=== PATIENT | female | born 1980 | race Asian ===

== ENCOUNTER 2017-07-17 03:48 | Emergency (ER) | payer OTHER ==
[~2017-07-17] VITALS: Ht 152.4 cm; Wt 46.6 kg
[2017-07-17] MEDS ORDERED: PROAIR HFA8.5 GM IH (05:25)
[2017-07-17 06:17] VITALS: BP 125/84
== END 2017-07-17 06:20 | disposition home or self-care (01) ==
LOC: EDBD 03:48 → EME 03:48
DX: J45.21 Mild intermittent asthma with (acute) exacerbation (principal); J44.9 Chronic obstructive pulmonary disease, unspecified; Z77.22 Contact with and (suspected) exposure to environmental tobacco smoke (acute) (chronic)
CPT/HCPCS: 93005; 94640; 99281; 99283; J7644

== ENCOUNTER 2017-09-22 22:46 | Emergency (ER) | payer OTHER ==
[~2017-09-22] VITALS: Ht 152.4 cm; Wt 47.0 kg
[~2017-09-22 22:46] MED LIST: PROAIR HFA8.5 GM IH
[2017-09-22 23:59] LABS: HEMATOCRIT 38.8 % (36.0-46.0); HEMOGLOBIN 12.6 G/DL (11.9-15.5); MCH 28.7 PG (29.0-34.0); MCHC 32.5 G/DL (30.0-36.0); MCV 88.4 FL (83-99); PLATELET COUNT 294 K/uL (156-360); RBC DIS.WIDTH-CV 15.4 % (11.8-14.6); RBC DIS.WIDTH-SD 49.9 % (39-53); RED BLOOD COUNT 4.39 M/uL (3.80-5.20); WHITE BLOOD COUNT 8.4 K/uL (4.1-10.2)
[2017-09-23 00:08] LABS: ALBUMIN 4.2 g/dL (3.2-4.8)
[2017-09-23 00:09] LABS: CHLORIDE 104 mEq/L (99-109); POTASSIUM 4.1 mEq/L (3.7-5.4); SODIUM 138 mEq/L (136-147)
[2017-09-23 00:11] LABS: GLUCOSE 92 mg/dL (70-99); TOTAL PROTEIN 7.4 g/dL (6.4-8.3)
[2017-09-23 00:13] LABS: TOTAL BILIRUBIN 0.3 mg/dL (0.0-1.0)
[2017-09-23 00:15] LABS: ALKALINE PHOSPHATASE 62 IU/L (3-129); CREATININE 0.7 mg/dL (0.6-1.3); GFR ESTIMATE (CALCULATED) > 59 mL/min/
[2017-09-23 00:16] LABS: UREA NITROGEN (BUN) 12 mg/dL (9-23)
[2017-09-23 00:17] LABS: AST (GOT) 17 IU/L (2-34)
[2017-09-23 00:18] LABS: ALT (GPT) 8 IU/L (3-49)
[2017-09-23 00:23] LABS: QUANTITATIVE HCG < 4.0 MIU/ML
[2017-09-23 04:17] LABS: LIPASE 37 U/L (1.0-51.0)
[2017-09-23] MEDS ORDERED: ZOFRAN4 MG PO (05:57)
[2017-09-23] MEDS ORDERED: PERCOCET 5/31 TABLET PO (05:57)
[2017-09-23] MEDS ORDERED: MACROBID100 MG PO (06:53)
[2017-09-23 07:31] VITALS: BP 111/79
[2017-09-23 07:38] LABS: APPEARANCE CLEAR ((CLEAR)); BILIRUBIN NEGATIVE; BLOOD NEGATIVE; COLOR STRAW ((YELLOW)); GLUCOSE (STRIP) NEGATIVE; KETONES NEGATIVE; LEUKOCYTES NEGATIVE; NITRITE NEGATIVE; PROTEIN (STRIP) NEGATIVE; SPECIFIC GRAVITY 1.005 (1.000-1.030); UCUL ADDED? NO; UROBILINOGEN 0.2 MG/DL (0.2-1.0)
== END 2017-09-23 07:48 | disposition home or self-care (01) ==
LOC: EME 22:46
DX: N83.202 Unspecified ovarian cyst, left side (principal); N83.201 Unspecified ovarian cyst, right side; R30.0 Dysuria; D25.9 Leiomyoma of uterus, unspecified; J44.9 Chronic obstructive pulmonary disease, unspecified; R73.03 Prediabetes
CPT/HCPCS: 76856; 80053; 81003; 83690; 84702; 85027; 93971; 99281; 99285; J1885; J2270; J2405; J7030

== ENCOUNTER 2017-12-03 13:34 | Emergency (ER) | payer OTHER ==
[~2017-12-03] VITALS: Ht 152.4 cm; Wt 45.0 kg
[~2017-12-03 13:34] MED LIST changes: +MACROBID100 MG PO; +PERCOCET 5/31 TABLET PO; +ZOFRAN4 MG PO
[2017-12-03 14:41] LABS: HEMATOCRIT 41.9 % (36.0-46.0); HEMOGLOBIN 13.5 G/DL (11.9-15.5); MCH 28.8 PG (29.0-34.0); MCHC 32.2 G/DL (30.0-36.0); MCV 89.5 FL (83-99); PLATELET COUNT 329 K/uL (156-360); RBC DIS.WIDTH-CV 14.5 % (11.8-14.6); RED BLOOD COUNT 4.68 M/uL (3.80-5.20); WHITE BLOOD COUNT 4.9 K/uL (4.1-10.2)
[2017-12-03 14:51] LABS: ALBUMIN 4.2 g/dL (3.2-4.8); CHLORIDE 105 mEq/L (99-109); POTASSIUM 4.3 mEq/L (3.7-5.4); SODIUM 140 mEq/L (136-147)
[2017-12-03 14:54] LABS: GLUCOSE 89 mg/dL (70-99); TOTAL PROTEIN 7.6 g/dL (6.4-8.3)
[2017-12-03 14:56] LABS: TOTAL BILIRUBIN 0.5 mg/dL (0.0-1.0)
[2017-12-03 14:57] LABS: ALKALINE PHOSPHATASE 58 IU/L (3-129); CREATININE 0.8 mg/dL (0.6-1.3); GFR ESTIMATE (CALCULATED) > 59 mL/min/
[2017-12-03 14:58] LABS: UREA NITROGEN (BUN) 13 mg/dL (9-23)
[2017-12-03 14:59] LABS: AST (GOT) 17 IU/L (2-34)
[2017-12-03 15:00] LABS: ALT (GPT) 9 IU/L (3-49)
[2017-12-03 15:07] LABS: QUANTITATIVE HCG < 4.0 MIU/ML
[2017-12-03 15:22] VITALS: BP 119/68
[2017-12-03 15:27] LABS: LIPASE 24 U/L (1.0-51.0)
[2017-12-03 17:04] LABS: APPEARANCE CLEAR ((CLEAR)); BILIRUBIN NEGATIVE; BLOOD MODERATE; COLOR YELLOW ((YELLOW)); GLUCOSE (STRIP) NEGATIVE; KETONES 20; LEUKOCYTES TRACE; NITRITE NEGATIVE; PROTEIN (STRIP) NEGATIVE; SPECIFIC GRAVITY 1.019 (1.000-1.030); UROBILINOGEN 0.2 MG/DL (0.2-1.0)
[2017-12-03 17:11] LABS: BACTERIA RARE /HPF; EPITHELIAL CELLS 1+ /HPF; MUCUS TRACE /LPF; RED BLOOD CELLS 0-5 /HPF (0-5); UCUL ADDED? NO; WHITE BLOOD CELLS 0-5 /HPF (0-5)
[2017-12-03] MEDS ORDERED: NAPROSYN500 MG PO (18:41)
== END 2017-12-03 19:11 | disposition home or self-care (01) ==
LOC: EXP 13:34 → EME 13:34 → EXP 19:11
PROVIDERS: Physician Assistant
DX: M54.5 Low back pain (principal); R51 Headache; N80.9 Endometriosis, unspecified; D25.9 Leiomyoma of uterus, unspecified; J44.9 Chronic obstructive pulmonary disease, unspecified; R73.03 Prediabetes; H91.90 Unspecified hearing loss, unspecified ear; Z90.49 Acquired absence of other specified parts of digestive tract
CPT/HCPCS: 74177; 80053; 81003; 83690; 84702; 85027; 99281; 99284; J1200; J1885; J2765; J7030